=== PATIENT | female | born 1990 | race Caucasian/White ===

== ENCOUNTER 2016-05-20 22:27 | Emergency (ER) | payer MEDICAID, OTHER ==
--- NOTE | 2016-05-20 23:19 | ED Physician Chart ---
Chief Complaint/HPI - Patient Information Date Seen:: 05/20/16 Time Seen:: 23:00 Chief Complaint:: abdominal pain History of Present Illness:: at 2030 patient had sharp LUQ pain. Then had one time diarrhea and forced herself to vomit once. Then had sensation of impending syncope: saw spots and couldn't hear well. Driving here face and hands became numb. Has no abdominal pain at present Allergies:: Allergies Allergy/AdvReac Type Severity Reaction Status Date / Time amoxicillin Allergy Verified 05/20/16 22:53 Vitals:: Vital Signs - 8 hr 05/20/16 22:30 Temp 97.4 F HR 79 RR 18 BP 129/59 O2 Sat % 100 Historian:: Patient, Family Member Review:: Nurse's Note Reviewed Review of Systems - Review of Systems General/Constitutional: No fever, No chills Skin: No skin lesions Head: No headache Eyes: No loss of vision ENT: No earache Neck: No neck pain Cardio Vascular: No chest pain Pulmonary: No SOB GI: Nausea, Vomiting, Diarrhea G/U: No dysuria, No hematuria Musculoskeletal: No bone or joint pain Endocrine: No polyuria, No polydipsia Psychiatric: No prior psych history Hematopoietic: No bruising Allergic/Immuno: No urticaria Neurological: No syncope, No focal symptoms Past Medical History - Past Medical History Past Medical History: Other (episodes of abdominal pain diagnosed as acid reflux ) Family History: HTN Social History: Non Smoker, No Alcohol Surgical History: None Psychiatricy History: None Medication: None Family Medical History - Family Member Mother History Unknown: Yes Living Status: Still Living Hx Family Hypertension: Yes Physical Exam - Physical Examination General/Constitutional: Alert Head: Atraumatic Eyes: Lids, conjuctiva normal, PERRL Skin: Nl inspection, No rash, No skin lesions, No ecchymosis ENMT: External ears, nose nl, TM canals nl, Nasal exam nl, Lips, teeth, gums nl Neck: Nontender, No nuchal rigidity Respiratory: Nl effort/Exclusion, Clear to Auscultation Cardio Vascular: RRR, No murmur, gallop, rubs GI: No tenderness/rebounding/guarding, No organomegaly, No hernia, Nondistended , No mass/bruits : No CVA tenderness Extremities: Normal digits & nails Neuro/Psych: Alert/oriented Misc: Normal back Assessment - Assessment General Assessment: probably has a viral enteritis causing abdominal pain and diarrhea. Pain caused patient to hyperventilate. Recommended referral to GI for EGD. ED Septic Shock - . Is Septic Shock (SBP<90, OR Lactate>4 mmol\L) present?: No - <6hrs of presentation: Vital Signs: Vital Signs - 8 hr 05/20/16 22:30 Temp 97.4 F HR 79 RR 18 BP 129/59 O2 Sat % 100 Reassessment (Disposition) - Reassessment Reassessment Condition:: Improved - Diagnosis Diagnosis:: viral enteritis - Aftercare/Follow up Instructions Aftercare/Follow-Up Instructions:: Refer to Discharge Instructions - Patient Disposition Discharge/Transfer:: Home Condition at Disposition:: Stable, Improved
== END 2016-05-20 23:22 | disposition home or self-care (01) ==
LOC: ER 22:27
DX: A08.4 Viral intestinal infection, unspecified (principal); Z88.0 Allergy status to penicillin
CPT/HCPCS: Z7502